=== PATIENT | male | born 1945 | race Two or more races ===

== ENCOUNTER 2022-09-07 20:56 | Inpatient (IN) | payer MEDICARE, OTHER ==
[~2022-09-07] VITALS: Ht 160 cm; Wt 61.2 kg
--- NOTE | 2022-09-07 20:31 | NUR ---
Patient arrived in the floor via gurney from [facility], accompanied by 2 EMT's. Awake, AOx 3, in no apparent distress. Denies any pain/discomforts at this time. Transferred from gurney to bed with 3 people assist. Able to move all extremities with slight weakness on left LE. Dressing on left hip dry and intact. F/C intact/patent draining well with clear yellow output. Routine admission care done. Plan of care initiated. VS taken and recorded.
[2022-09-07 20:35] VITALS: BP 150/71
[2022-09-07] MEDS ORDERED: ROSU40TA PO (22:50)
[2022-09-07] MEDS ORDERED: BIMA2.5D5 EACHEYE (22:50)
[2022-09-07] MEDS ORDERED: OLME1TAB22 PO (22:50)
[2022-09-07] MEDS ORDERED: LUBI24CA5 PO (22:50)
[2022-09-07] MEDS ORDERED: ESOM40CA PO (22:50)
[2022-09-07] MEDS ORDERED: MIRT-94 PO (22:50)
[2022-09-07] MEDS ORDERED: LIPA1CAP15 PO (22:50)
[2022-09-07] MEDS ORDERED: ICOS1CAP PO (22:50)
[2022-09-07] MEDS ORDERED: SENN-18 PO (22:50)
[2022-09-07] MEDS ORDERED: METO-356 PO (22:50)
[2022-09-07] MEDS ORDERED: MIRA25TA PO (22:50)
[2022-09-07] MEDS ORDERED: NITR0.4T48 SL (22:50)
[2022-09-07] MEDS ORDERED: BACL10TA PO (22:50)
[2022-09-07] MEDS ORDERED: POTA10TA21 PO (22:50)
[2022-09-07] MEDS ORDERED: ONDA-104 PO (22:50)
[2022-09-07] MEDS ORDERED: HYDR-3972 PO (22:50)
[2022-09-07] MEDS ORDERED: ASPI-612 PO (22:50)
[2022-09-07] MEDS ORDERED: LINA145C PO (22:50)
[2022-09-07] MEDS ORDERED: EZET10TA32 PO (22:50)
[2022-09-07] MEDS ORDERED: NAPR-1009 PO (22:50)
[2022-09-07] MEDS ORDERED: FAMO40TA7 PO (22:50)
[2022-09-07] MEDS ORDERED: TIMO5SOL11 OP (22:50)
[2022-09-07] MEDS ORDERED: PREG100C PO (22:50)
[2022-09-07] MEDS ORDERED: CHOL100034 PO (22:50)
[2022-09-07] MEDS ORDERED: PARO-64 PO (22:50)
[2022-09-07] MEDS ORDERED: GABA-532 PO (22:50)
[2022-09-08 04:00] VITALS: BP 158/76
[2022-09-08 07:56] VITALS: BP 139/78
[2022-09-08] MEDS: REMEDY ESSENTIAL ZINC PASTE 113 GM TOP SCH ×2 (09:34→20:24)
[2022-09-08] MEDS ORDERED: ONDANSETRON HCL 4 MG TABLET PO PRN (11:00)
[2022-09-08] MEDS ORDERED: ASPIRIN 325 MG TABLET PO SCH (11:00)
[2022-09-08] MEDS ORDERED: SENNOSIDES 1 TABLET PO PRN (11:00)
[2022-09-08] MEDS ORDERED: NITROGLYCERIN 0.4 MG/TAB BOTTLE SL PRN (11:00)
[2022-09-08] MEDS: PAROXETINE HCL 20 MG TABLET PO SCH (11:50)
[2022-09-08] MEDS: ASPIRIN 325 MG TABLET PO SCH (11:52)
[2022-09-08] MEDS: LIPASE/PROTEASE/AMYLASE 4200 UNITS CAPSULE.DR PO SCH ×2 (12:34→17:23)
[2022-09-08] MEDS ORDERED: TIMO5DRO18 EACHEYE (12:41)
[2022-09-08] MEDS ORDERED: POTA5TAB2 PO (12:41)
[2022-09-08] MEDS: PREGABALIN 100 MG CAPSULE PO SCH ×2 (13:20→20:24)
[2022-09-08] MEDS: TIMOLOL MALEATE 0.5% OPHT DROP 5 ML BOTTLE EACHEYE SCH ×2 (15:00→20:23)
[2022-09-08] MEDS: METOPROLOL SUCCINATE XL 25 MG TAB.SR.24H PO SCH (15:00)
[2022-09-08 16:22] VITALS: BP 121/73
--- NOTE | 2022-09-08 18:28 | NUR ---
Patient was admitted to the hospital during NOC shift. Admitting orders finalized by Dr. Ann. Oriented patient to facility and surroundings. Safety precautions explained, encouraged to use call light for help every time needed with good understanding. LT hip surgical site with arnav in place, covered with clean DD in place, patient denies pain, on routine lyrica/other medication and administered as scheduled. Patient eating and drinking well, CxR done, results reviewed by Dr. Ann, no new orders. Per pharmacy they do not carry Linzess nor Merbetric, attempted to reach Yodit, (patient's family) to request home meds, but unable to get a hold of her , endorsed to incoming relieving nurse for proper follow up. All needs anticipated and met.
[2022-09-08] MEDS: LATANOPROST OPHT DROP 2.5 ML BOTTLE EACHEYE SCH (20:23)
[2022-09-08] MEDS: ATORVASTATIN 40 MG TABLET PO SCH (20:28)
[2022-09-08] MEDS: MIRTAZAPINE 15 MG TABLET PO SCH (20:28)
[2022-09-08] MEDS: EZETIMIBE 10 MG TABLET PO SCH (20:28)
[2022-09-08] MEDS: BACLOFEN 10 MG TABLET PO SCH (20:28)
[2022-09-08 21:11] VITALS: BP 125/62
[2022-09-09 05:34] VITALS: BP 145/76
[2022-09-09 06:54] LABS: HEMATOCRIT 30.6 % (36.7-47.1); MEAN CORPUSCULAR VOLUME 92.8 fL (73.0-96.2); PLATELET COUNT (AUTO) 111 K/uL (152-348)
[2022-09-09 07:50] VITALS: BP 138/76
[2022-09-09] MEDS ORDERED: Medication Not On Formulary EA (Olmesartan/Hydrochlorothiazide (Benicar Hct 40-25 Mg Tab PO SCH (09:00)
[2022-09-09] MEDS ORDERED: Mirabegron (Myrbetriq) 25 MG) PO SCH (09:00)
[2022-09-09] MEDS ORDERED: Linaclotide (Linzess) 145 MCG) PO SCH (09:00)
[2022-09-09] MEDS: LOSARTAN POTASSIUM 50 MG TABLET PO SCH (10:02)
[2022-09-09] MEDS: CHOLECALCIFEROL 1,000 UNIT TABLET PO SCH (10:02)
[2022-09-09] MEDS: PAROXETINE HCL 20 MG TABLET PO SCH (10:02)
[2022-09-09] MEDS: HYDROCHLOROTHIAZIDE 25 MG TABLET PO SCH (10:02)
[2022-09-09] MEDS: ASPIRIN 325 MG TABLET PO SCH (10:02)
[2022-09-09] MEDS: PREGABALIN 100 MG CAPSULE PO SCH ×2 (10:03→16:53)
[2022-09-09] MEDS: REMEDY ESSENTIAL ZINC PASTE 113 GM TOP SCH ×2 (10:03→20:48)
[2022-09-09] MEDS: METOPROLOL SUCCINATE XL 25 MG TAB.SR.24H PO SCH (10:03)
[2022-09-09] MEDS: LIPASE/PROTEASE/AMYLASE 4200 UNITS CAPSULE.DR PO SCH ×3 (10:07→16:53)
[2022-09-09] MEDS: TIMOLOL MALEATE 0.5% OPHT DROP 5 ML BOTTLE EACHEYE SCH ×2 (10:24→16:54)
--- NOTE | 2022-09-09 13:23 | NUR ---
INTERDISCIPLINARY TEAM CONFERENCE
[2022-09-09 16:08] VITALS: BP_SYST 105; BP_SYST 140; BP_DIAS 58; BP_DIAS 69
[2022-09-09 20:00] VITALS: BP 107/60
[2022-09-09] MEDS: EZETIMIBE 10 MG TABLET PO SCH (20:47)
[2022-09-09] MEDS: LATANOPROST OPHT DROP 2.5 ML BOTTLE EACHEYE SCH (20:47)
[2022-09-09] MEDS: MIRTAZAPINE 15 MG TABLET PO SCH (20:47)
[2022-09-09] MEDS: BACLOFEN 10 MG TABLET PO SCH (20:47)
[2022-09-09] MEDS: ATORVASTATIN 40 MG TABLET PO SCH (20:47)
--- NOTE | 2022-09-10 06:41 | NUR ---
Had 2x BM soft yellow colored. Good julieth care/skin care rendered.
[2022-09-10 07:30] LABS: HEMATOCRIT 32.3 % (36.7-47.1); MEAN CORPUSCULAR HEMOGLOBIN 30.9 uug (23.8-33.4); MEAN CORPUSCULAR VOLUME 93.1 fL (73.0-96.2); PLATELET COUNT (AUTO) 158 K/uL (152-348)
[2022-09-10 07:59] LABS: THYROID STIMULATING HORMONE 1.214 mIU/mL (0.358-3.740)
[2022-09-10 08:04] VITALS: BP 120/70
[2022-09-10] MEDS: PREGABALIN 100 MG CAPSULE PO SCH ×2 (08:16→16:56)
[2022-09-10] MEDS: CHOLECALCIFEROL 1,000 UNIT TABLET PO SCH (08:16)
[2022-09-10] MEDS: ASPIRIN 325 MG TABLET PO SCH (08:16)
[2022-09-10] MEDS: PAROXETINE HCL 20 MG TABLET PO SCH (08:16)
[2022-09-10] MEDS: METOPROLOL SUCCINATE XL 25 MG TAB.SR.24H PO SCH (08:17)
[2022-09-10] MEDS: LOSARTAN POTASSIUM 50 MG TABLET PO SCH (08:17)
[2022-09-10] MEDS: HYDROCHLOROTHIAZIDE 25 MG TABLET PO SCH (08:17)
[2022-09-10] MEDS: LIPASE/PROTEASE/AMYLASE 4200 UNITS CAPSULE.DR PO SCH ×3 (08:18→17:02)
[2022-09-10] MEDS: TIMOLOL MALEATE 0.5% OPHT DROP 5 ML BOTTLE EACHEYE SCH ×2 (08:18→16:56)
[2022-09-10] MEDS: REMEDY ESSENTIAL ZINC PASTE 113 GM TOP SCH ×2 (08:19→20:44)
[2022-09-10 08:29] LABS: BILIRUBIN,TOTAL 0.8 mg/dL (0.2-1.0); CREATININE 0.6 mg/dL (0.6-1.3); MAGNESIUM 1.3 mg/dL (1.8-2.4); PHOSPHOROUS 3.7 mg/dL (2.5-4.9); TOTAL PROTEIN, SERUM 5.1 g/dL (6.4-8.2)
[2022-09-10 08:53] LABS: POTASSIUM 2.6 mmol/L (3.5-5.1)
[2022-09-10] MEDS ORDERED: POTASSIUM CHLORIDE 20 MEQ TAB.PRT.SR PO ONE (09:15)
[2022-09-10] MEDS ORDERED: MAGNESIUM OXIDE 400 MG TABLET PO ONE (09:15)
[2022-09-10] MEDS: PROTEIN SUPPLEMENT (PROSTAT) 30 ML LIQUID PO SCH (09:32)
--- NOTE | 2022-09-10 10:57 | NUR ---
INDIVIDUALIZED PLAN OF CARE
[2022-09-10 11:04] VITALS: BP 98/62
[2022-09-10] MEDS: ENSURE ENLIVE (VAN) 240 ML LIQUID PO SCH ×2 (13:30→16:56)
[2022-09-10 15:57] VITALS: BP 95/56
[2022-09-10 20:00] VITALS: BP 114/66
[2022-09-10] MEDS: LATANOPROST OPHT DROP 2.5 ML BOTTLE EACHEYE SCH (20:42)
[2022-09-10] MEDS: EZETIMIBE 10 MG TABLET PO SCH (20:42)
[2022-09-10] MEDS: MIRTAZAPINE 15 MG TABLET PO SCH (20:43)
[2022-09-10] MEDS: BACLOFEN 10 MG TABLET PO SCH (20:43)
[2022-09-10] MEDS: ATORVASTATIN 40 MG TABLET PO SCH (20:43)
[2022-09-11 04:00] VITALS: BP 106/65
[2022-09-11 07:46] VITALS: BP 137/68
[2022-09-11] MEDS: METOPROLOL SUCCINATE XL 25 MG TAB.SR.24H PO SCH (08:32)
[2022-09-11] MEDS: CHOLECALCIFEROL 1,000 UNIT TABLET PO SCH (08:32)
[2022-09-11] MEDS: ASPIRIN 325 MG TABLET PO SCH (08:32)
[2022-09-11] MEDS: PAROXETINE HCL 20 MG TABLET PO SCH (08:33)
[2022-09-11] MEDS: PREGABALIN 100 MG CAPSULE PO SCH ×2 (08:33→16:36)
[2022-09-11] MEDS: LOSARTAN POTASSIUM 50 MG TABLET PO SCH (08:33)
[2022-09-11] MEDS: HYDROCHLOROTHIAZIDE 25 MG TABLET PO SCH (08:33)
[2022-09-11] MEDS: LIPASE/PROTEASE/AMYLASE 4200 UNITS CAPSULE.DR PO SCH ×3 (08:33→16:37)
[2022-09-11] MEDS: PROTEIN SUPPLEMENT (PROSTAT) 30 ML LIQUID PO SCH (08:34)
[2022-09-11] MEDS: TIMOLOL MALEATE 0.5% OPHT DROP 5 ML BOTTLE EACHEYE SCH ×2 (08:35→16:37)
[2022-09-11] MEDS: ENSURE ENLIVE (VAN) 240 ML LIQUID PO SCH ×3 (09:05→17:13)
[2022-09-11] MEDS: REMEDY ESSENTIAL ZINC PASTE 113 GM TOP SCH ×2 (09:06→21:01)
--- NOTE | 2022-09-11 09:35 | NUR ---
0730-Rec'd patient verbalizes simple needs, denies pain, on R/A and saturating well, no respiratory distress noted. Bedside table & needed items at reach. Encouraged to use call light every time help is needed with good understanding; safety precaution reminders provided. All safety measures in place. 0900-Scheduled/due medication administered with no ASE noted. Oral fluids taken well.
[2022-09-11 16:33] VITALS: BP 106/60
--- NOTE | 2022-09-11 18:03 | NUR ---
1130-Patient was visited by (Cristy), followed up with Cristy if she can provide home meds as follows: Lizess and Merbetric, per Cristy she will bring Linzess tomorrow, but she does not know if she has Merbetric. Pharmacy was informed ([facility]). Endorsed it properly to incoming relieving RN for proper follow up. No unusual occurrences during shift, patient within usual baseline/stable. Had a shower today by rehab personnel; dressing to left hip surgical site changed. Patient tolerated procedure well,l denied any pain. All needs anticipated and met.
[2022-09-11 20:00] VITALS: BP 90/50
[2022-09-11] MEDS: ATORVASTATIN 40 MG TABLET PO SCH (21:00)
[2022-09-11] MEDS: BACLOFEN 10 MG TABLET PO SCH (21:00)
[2022-09-11] MEDS: LATANOPROST OPHT DROP 2.5 ML BOTTLE EACHEYE SCH (21:01)
[2022-09-11] MEDS: EZETIMIBE 10 MG TABLET PO SCH (21:01)
[2022-09-11] MEDS: MIRTAZAPINE 15 MG TABLET PO SCH (21:01)
[2022-09-11] MEDS: HYDROCODONE/APAP 5-325MG TABLET PO PRN (21:50)
[2022-09-12 04:00] VITALS: BP 110/62
--- NOTE | 2022-09-12 04:19 | NUR ---
Admitted for S/P left hip arthroplasty by Dr Ryder. Left hip dressing intact with arnav intact. All needs attended. VSS No acute distress noted. Will monitor patient. Denies any pain nor any discomfort. Hernández catheter intact draining yellow urine. v
[2022-09-12 07:36] VITALS: BP 98/52
[2022-09-12] MEDS: METOPROLOL SUCCINATE XL 25 MG TAB.SR.24H PO SCH (09:00)
[2022-09-12] MEDS: LOSARTAN POTASSIUM 50 MG TABLET PO SCH (09:00)
[2022-09-12] MEDS: LIPASE/PROTEASE/AMYLASE 4200 UNITS CAPSULE.DR PO SCH ×3 (10:17→16:49)
[2022-09-12] MEDS: ASPIRIN 325 MG TABLET PO SCH (10:17)
[2022-09-12] MEDS: CHOLECALCIFEROL 1,000 UNIT TABLET PO SCH (10:17)
[2022-09-12] MEDS: PROTEIN SUPPLEMENT (PROSTAT) 30 ML LIQUID PO SCH (10:18)
[2022-09-12] MEDS: TIMOLOL MALEATE 0.5% OPHT DROP 5 ML BOTTLE EACHEYE SCH ×2 (10:18→16:44)
[2022-09-12] MEDS: REMEDY ESSENTIAL ZINC PASTE 113 GM TOP SCH ×2 (10:19→20:41)
[2022-09-12] MEDS: HYDROCHLOROTHIAZIDE 25 MG TABLET PO SCH (10:20)
[2022-09-12] MEDS: PREGABALIN 100 MG CAPSULE PO SCH ×2 (10:20→16:45)
[2022-09-12] MEDS: ENSURE ENLIVE (VAN) 240 ML LIQUID PO SCH ×3 (10:21→16:45)
[2022-09-12] MEDS: PAROXETINE HCL 20 MG TABLET PO SCH (10:21)
[2022-09-12] MEDS ORDERED: IV NORMAL SALINE 250 ML IV ONE (16:30)
[2022-09-12] MEDS: PIPERACILLIN SODIUM/TAZOBACTAM 3.375 G in IV DEXTROSE 5% 50 ML IV SCH ×2 (18:02→18:10)
[2022-09-12 18:29] LABS: HEMATOCRIT 33.8 % (36.7-47.1); MEAN CORPUSCULAR HEMOGLOBIN 30.8 uug (23.8-33.4); MEAN CORPUSCULAR VOLUME 92.9 fL (73.0-96.2); PLATELET COUNT (AUTO) 276 K/uL (152-348)
[2022-09-12 18:42] LABS: CREATININE 0.9 mg/dL (0.6-1.3)
[2022-09-12 18:46] LABS: POTASSIUM 2.6 mmol/L (3.5-5.1)
[2022-09-12 18:48] LABS: BILIRUBIN,TOTAL 0.9 mg/dL (0.2-1.0); TOTAL PROTEIN, SERUM 5.5 g/dL (6.4-8.2)
[2022-09-12] MEDS ORDERED: POTASSIUM CHLORIDE 20 MEQ TAB.PRT.SR PO ONE ×2 (19:00→19:30)
[2022-09-12 19:40] VITALS: BP 94/54
[2022-09-12] MEDS ORDERED: IV 0.9% SODIUM CHLORID+ 20 KCL 1,000 ML ONE (19:49)
[2022-09-12] MEDS ORDERED: IV 0.9% SODIUM CHLORID+ 20 KCL 1,000 ML IV PRN (20:00)
[2022-09-12] MEDS: VANCOMYCIN IV 1,000 MG in IV DEXTROSE 5% 250 ML IV SCH (20:01)
[2022-09-12] MEDS: LATANOPROST OPHT DROP 2.5 ML BOTTLE EACHEYE SCH (20:08)
[2022-09-12] MEDS: MIRTAZAPINE 15 MG TABLET PO SCH (20:37)
[2022-09-12] MEDS: BACLOFEN 10 MG TABLET PO SCH (20:37)
[2022-09-12] MEDS: VALACYCLOVIR HCL 500 MG TABLET PO SCH (20:38)
[2022-09-13] MEDS: PIPERACILLIN SODIUM/TAZOBACTAM 3.375 G in IV DEXTROSE 5% 50 ML IV SCH ×3 (01:44→17:44)
[2022-09-13 04:30] VITALS: BP 96/52
--- NOTE | 2022-09-13 05:00 | NUR ---
K 2.6 MD aware Took a total of Kdur 60 meq tabs per MD's order. Tolerated well. No ill effects noted. IV ABT given as ordered. IVF's infusing well @ 70 cc/hr via left arm heplock. Needs attended. Repositioned for comfort. Turned to sides. Fall precautions maintained. Will monitor patient. Siderails up for safety. Hernández catheter intact draining yellow urine. I & O monitor. No complaints presented during the shift.
[2022-09-13 07:43] VITALS: BP 106/58
[2022-09-13 08:03] LABS: HEMATOCRIT 26.5 % (36.7-47.1); MEAN CORPUSCULAR HEMOGLOBIN 31.3 uug (23.8-33.4); PLATELET COUNT (AUTO) 259 K/uL (152-348)
[2022-09-13] MEDS: HYDROCHLOROTHIAZIDE 25 MG TABLET PO SCH (09:00)
[2022-09-13] MEDS: METOPROLOL SUCCINATE XL 25 MG TAB.SR.24H PO SCH (09:00)
[2022-09-13] MEDS: POTASSIUM CHLORIDE 10 MEQ TAB.PRT.SR PO SCH ×2 (09:00→10:19)
[2022-09-13 09:03] LABS: CREATININE 0.7 mg/dL (0.6-1.3); POTASSIUM 5.8 mmol/L (3.5-5.1)
[2022-09-13 09:37] LABS: MAGNESIUM 1.2 mg/dL (1.8-2.4)
[2022-09-13] MEDS: PREGABALIN 100 MG CAPSULE PO SCH ×2 (10:19→17:40)
[2022-09-13] MEDS: CHOLECALCIFEROL 1,000 UNIT TABLET PO SCH (10:19)
[2022-09-13] MEDS: PAROXETINE HCL 20 MG TABLET PO SCH (10:19)
[2022-09-13] MEDS: ASPIRIN 325 MG TABLET PO SCH (10:20)
[2022-09-13] MEDS: ENSURE ENLIVE (VAN) 240 ML LIQUID PO SCH ×3 (10:20→17:40)
[2022-09-13] MEDS: LIPASE/PROTEASE/AMYLASE 4200 UNITS CAPSULE.DR PO SCH ×3 (10:21→17:41)
[2022-09-13] MEDS: TIMOLOL MALEATE 0.5% OPHT DROP 5 ML BOTTLE EACHEYE SCH ×2 (10:21→17:40)
[2022-09-13] MEDS: PROTEIN SUPPLEMENT (PROSTAT) 30 ML LIQUID PO SCH ×3 (10:21→17:41)
[2022-09-13] MEDS: VALACYCLOVIR HCL 500 MG TABLET PO SCH ×2 (10:22→20:43)
[2022-09-13] MEDS: LINZESS 145MG - PATIENT MAY USE OWN MED- MD OK PO SCH (10:22)
[2022-09-13] MEDS: REMEDY ESSENTIAL ZINC PASTE 113 GM TOP SCH ×2 (10:24→20:44)
[2022-09-13] MEDS ORDERED: FUROSEMIDE 20 MG/2 ML VIAL IV ONE (10:45)
[2022-09-13] MEDS: MAGNESIUM SULFATE/D5W 100 ML IV SCH ×2 (11:09→12:39)
[2022-09-13 11:23] LABS: IRON, SERUM 17 ug/dL (50-175)
--- NOTE | 2022-09-13 12:40 | NUR ---
KUB done as ordered. bladder seen with <700ml urine. f/c inserted 1300 ml drained. pt stated he did not fell full in his bladder. but on palpitation he stated it felt full. hailee well. clear teto
[2022-09-13] MEDS: VANCOMYCIN IV 1,000 MG in IV DEXTROSE 5% 250 ML IV SCH (14:43)
[2022-09-13 16:26] VITALS: BP 83/56
--- NOTE | 2022-09-13 19:35 | NUR ---
Right hand swollen, IV infiltrated, removed and start a new IV site on RFA Q# 20 x 1 attempt with good blood return. Patient tolerated procedure well. IVF resumed as ordered.
[2022-09-13 19:58] VITALS: BP 91/58
[2022-09-13] MEDS: BACLOFEN 10 MG TABLET PO SCH (20:43)
[2022-09-13] MEDS: MIRTAZAPINE 15 MG TABLET PO SCH (20:43)
[2022-09-13] MEDS: LATANOPROST OPHT DROP 2.5 ML BOTTLE EACHEYE SCH (20:43)
[2022-09-14] MEDS: PIPERACILLIN SODIUM/TAZOBACTAM 3.375 G in IV DEXTROSE 5% 50 ML IV SCH ×3 (01:20→18:32)
[2022-09-14 04:30] VITALS: BP 100/59
[2022-09-14 07:38] VITALS: BP 118/69
[2022-09-14 08:51] LABS: CREATININE 0.7 mg/dL (0.6-1.3); POTASSIUM 2.9 mmol/L (3.5-5.1); VANCOMYCIN,TROUGH 14.8 ug/mL (12.0-20.0)
[2022-09-14] MEDS: PAROXETINE HCL 20 MG TABLET PO SCH (08:54)
[2022-09-14] MEDS: POTASSIUM CHLORIDE 10 MEQ TAB.PRT.SR PO SCH (08:55)
[2022-09-14] MEDS: LINZESS 145MG - PATIENT MAY USE OWN MED- MD OK PO SCH (08:55)
[2022-09-14] MEDS: ASPIRIN 325 MG TABLET PO SCH (08:55)
[2022-09-14] MEDS: CHOLECALCIFEROL 1,000 UNIT TABLET PO SCH (08:55)
[2022-09-14] MEDS: HYDROCHLOROTHIAZIDE 25 MG TABLET PO SCH (08:55)
[2022-09-14] MEDS: PREGABALIN 100 MG CAPSULE PO SCH ×2 (08:55→16:22)
[2022-09-14] MEDS: METOPROLOL SUCCINATE XL 25 MG TAB.SR.24H PO SCH (09:00)
[2022-09-14] MEDS: PROTEIN SUPPLEMENT (PROSTAT) 30 ML LIQUID PO SCH ×3 (09:15→16:23)
[2022-09-14] MEDS: ENSURE ENLIVE (VAN) 240 ML LIQUID PO SCH ×3 (09:15→16:23)
[2022-09-14] MEDS: TIMOLOL MALEATE 0.5% OPHT DROP 5 ML BOTTLE EACHEYE SCH ×2 (09:15→16:23)
[2022-09-14] MEDS: REMEDY ESSENTIAL ZINC PASTE 113 GM TOP SCH ×2 (09:16→20:31)
[2022-09-14] MEDS: VALACYCLOVIR HCL 500 MG TABLET PO SCH ×2 (09:58→20:30)
[2022-09-14] MEDS: VANCOMYCIN IV 1,000 MG in IV DEXTROSE 5% 250 ML IV SCH (09:58)
[2022-09-14] MEDS: LIPASE/PROTEASE/AMYLASE 4200 UNITS CAPSULE.DR PO SCH ×3 (09:58→16:23)
[2022-09-14] MEDS ORDERED: POTASSIUM CHLORIDE 20 MEQ TAB.PRT.SR PO ONE (11:00)
[2022-09-14] MEDS ORDERED: SOD FERRIC GLUC COMPLX/SUCROSE 125 MG in IV NORMAL SALINE 100 ML IV ONE (14:00)
[2022-09-14 15:17] VITALS: BP 104/63
[2022-09-14 19:51] VITALS: BP 110/60
[2022-09-14] MEDS: MIRTAZAPINE 15 MG TABLET PO SCH (20:30)
[2022-09-14] MEDS: BACLOFEN 10 MG TABLET PO SCH (20:30)
[2022-09-14] MEDS: LATANOPROST OPHT DROP 2.5 ML BOTTLE EACHEYE SCH (20:30)
[2022-09-15] MEDS: IV NS 1000 ML 1,000 ML IV PRN (00:42)
[2022-09-15] MEDS: PIPERACILLIN SODIUM/TAZOBACTAM 3.375 G in IV DEXTROSE 5% 50 ML IV SCH ×3 (01:00→18:26)
[2022-09-15] MEDS: VANCOMYCIN IV 1,000 MG in IV DEXTROSE 5% 250 ML IV SCH (01:01)
[2022-09-15 05:13] VITALS: BP 116/69
--- NOTE | 2022-09-15 05:51 | NUR ---
no events noted overnight, IV intact to right wrist, no signs and symptoms of IV infiltration noted at this time. Addendum: 09/15/22 at 0557 by VESTA BARON RN, RN incision site to left hip is intact, clean and dry, arnav are intact. well approximated, no sign and symptoms of infection noted at this time.
--- NOTE | 2022-09-15 07:15 | NUR ---
Received report from Darion RN, pt asleep in bed, no s/s of distress noted. IV sight no s/s of infection or infiltration. Bed low, call light within reach, bed alarm on.
[2022-09-15 07:40] LABS: HEMATOCRIT 29.9 % (36.7-47.1); MEAN CORPUSCULAR HEMOGLOBIN 31.4 uug (23.8-33.4); MEAN CORPUSCULAR VOLUME 93.3 fL (73.0-96.2); PLATELET COUNT (AUTO) 413 K/uL (152-348)
[2022-09-15] MEDS: PROTEIN SUPPLEMENT (PROSTAT) 30 ML LIQUID PO SCH ×3 (08:00→15:00)
[2022-09-15 08:06] VITALS: BP 119/65
[2022-09-15 08:26] LABS: BILIRUBIN,TOTAL 0.7 mg/dL (0.2-1.0); CREATININE 0.8 mg/dL (0.6-1.3); MAGNESIUM 1.6 mg/dL (1.8-2.4); PHOSPHOROUS 3.2 mg/dL (2.5-4.9); POTASSIUM 3.8 mmol/L (3.5-5.1); TOTAL PROTEIN, SERUM 5.8 g/dL (6.4-8.2)
[2022-09-15] MEDS: ENSURE ENLIVE (VAN) 240 ML LIQUID PO SCH ×3 (08:35→17:34)
[2022-09-15] MEDS: REMEDY ESSENTIAL ZINC PASTE 113 GM TOP SCH ×2 (08:40→21:18)
[2022-09-15] MEDS: LIPASE/PROTEASE/AMYLASE 4200 UNITS CAPSULE.DR PO SCH ×3 (08:56→16:44)
[2022-09-15] MEDS: POTASSIUM CHLORIDE 10 MEQ TAB.PRT.SR PO SCH (08:58)
[2022-09-15] MEDS: VALACYCLOVIR HCL 500 MG TABLET PO SCH ×2 (08:58→21:18)
[2022-09-15] MEDS: CHOLECALCIFEROL 1,000 UNIT TABLET PO SCH (08:59)
[2022-09-15] MEDS: PREGABALIN 100 MG CAPSULE PO SCH ×2 (09:00→16:44)
[2022-09-15] MEDS: PAROXETINE HCL 20 MG TABLET PO SCH (09:01)
[2022-09-15] MEDS: METOPROLOL SUCCINATE XL 25 MG TAB.SR.24H PO SCH (09:01)
[2022-09-15] MEDS: HYDROCHLOROTHIAZIDE 25 MG TABLET PO SCH (09:02)
[2022-09-15] MEDS: TIMOLOL MALEATE 0.5% OPHT DROP 5 ML BOTTLE EACHEYE SCH ×2 (09:03→16:44)
[2022-09-15] MEDS: ASPIRIN 325 MG TABLET PO SCH (09:03)
[2022-09-15] MEDS: LINZESS 145MG - PATIENT MAY USE OWN MED- MD OK PO SCH (09:04)
--- NOTE | 2022-09-15 10:40 | NUR ---
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 Spoke to Aidan in the Med room at 0930, he said he would follow up with pharmacy. I called Kika in the pharmacy at 1000 to f/u, she said she would look into it. At 1013 Aidan told me to please get it from dietary. Spoke with Kady in dietary at 1038 she is checking the orders and will get back to me jocelyne.
[2022-09-15] MEDS: MAGNESIUM SULFATE/D5W 100 ML IV SCH ×2 (11:33→14:27)
--- NOTE | 2022-09-15 11:49 | NUR ---
Pt Left Hip incision sight with arnav, clean and intact with no s/s of infection noted.
[2022-09-15 12:00] VITALS: BP 119/65
--- NOTE | 2022-09-15 15:21 | NUR ---
PROSTAT given at 1338 today per old order. "Held" on new Daily order at 1500 because it was already.
[2022-09-15 16:00] VITALS: BP 118/60
--- NOTE | 2022-09-15 16:30 | NUR ---
Pt was c/o pain in IV hand. Pt now states that there is no pain there.
[2022-09-15 20:00] VITALS: BP_SYST 117; BP_SYST 91; BP_DIAS 56; BP_DIAS 67
[2022-09-15] MEDS: MIRTAZAPINE 15 MG TABLET PO SCH (21:17)
[2022-09-15] MEDS: LATANOPROST OPHT DROP 2.5 ML BOTTLE EACHEYE SCH (21:17)
[2022-09-15] MEDS: BACLOFEN 10 MG TABLET PO SCH (21:17)
[2022-09-16] VITALS: BP 114/56
[2022-09-16] MEDS: PIPERACILLIN SODIUM/TAZOBACTAM 3.375 G in IV DEXTROSE 5% 50 ML IV SCH ×2 (02:27→10:21)
[2022-09-16 04:00] VITALS: BP 112/73
--- NOTE | 2022-09-16 07:33 | NUR ---
Received report from JANI Leary. Pt stable, asleep in bed, arousable. Oriented pt to date and time. No s/s of distress noted. Bed in lowest position, bed alarm on, call light within reach.
[2022-09-16 08:12] VITALS: BP 112/65
[2022-09-16] MEDS: LIPASE/PROTEASE/AMYLASE 4200 UNITS CAPSULE.DR PO SCH ×3 (08:16→17:39)
[2022-09-16] MEDS: ASPIRIN 325 MG TABLET PO SCH (08:16)
[2022-09-16] MEDS: POTASSIUM CHLORIDE 10 MEQ TAB.PRT.SR PO SCH (08:16)
[2022-09-16] MEDS: TIMOLOL MALEATE 0.5% OPHT DROP 5 ML BOTTLE EACHEYE SCH ×2 (08:16→17:39)
[2022-09-16] MEDS: PREGABALIN 100 MG CAPSULE PO SCH ×2 (08:16→17:39)
[2022-09-16] MEDS: CHOLECALCIFEROL 1,000 UNIT TABLET PO SCH (08:16)
[2022-09-16] MEDS: VALACYCLOVIR HCL 500 MG TABLET PO SCH ×2 (08:16→20:20)
[2022-09-16] MEDS: HYDROCHLOROTHIAZIDE 25 MG TABLET PO SCH (08:17)
[2022-09-16] MEDS: PAROXETINE HCL 20 MG TABLET PO SCH (08:17)
[2022-09-16] MEDS: METOPROLOL SUCCINATE XL 25 MG TAB.SR.24H PO SCH (08:18)
[2022-09-16] MEDS: LINZESS 145MG - PATIENT MAY USE OWN MED- MD OK PO SCH (08:18)
[2022-09-16] MEDS: ENSURE ENLIVE (VAN) 240 ML LIQUID PO SCH ×3 (08:19→17:39)
[2022-09-16] MEDS: REMEDY ESSENTIAL ZINC PASTE 113 GM TOP SCH ×2 (08:20→20:20)
[2022-09-16] MEDS: PROTEIN SUPPLEMENT (PROSTAT) 30 ML LIQUID PO SCH (09:26)
--- NOTE | 2022-09-16 10:21 | NUR ---
INTERDISCIPLINARY TEAM CONFERENCE
[2022-09-16 16:00] VITALS: BP 95/56
[2022-09-16] MEDS ORDERED: PIPERACILLIN SODIUM/TAZOBACTAM 3.375 G in IV DEXTROSE 5% 100 ML IV SCH (18:00)
--- NOTE | 2022-09-16 18:00 | NUR ---
Blood in browning noted. Pt states he has many kidney stones. Will notify MD and endorse to slot shift supervisor.
--- NOTE | 2022-09-16 19:23 | NUR ---
Endorsed pt to casino shift manager RN, pt stable, no s/s of distress noted.
[2022-09-16 20:02] VITALS: BP 111/55
[2022-09-16] MEDS: MIRTAZAPINE 15 MG TABLET PO SCH (20:20)
[2022-09-16] MEDS: LATANOPROST OPHT DROP 2.5 ML BOTTLE EACHEYE SCH (20:20)
[2022-09-16] MEDS: BACLOFEN 10 MG TABLET PO SCH (20:20)
--- NOTE | 2022-09-17 04:12 | NUR ---
AAOx3-4 Admitted for a left hip replacement. Left hip dressing clean dry and intact. Denies any pain nor any discomfort. Fall precautions maintained. IVF's infusing well via left wrist heplock. Hernández catheter intact draining yellow urine. Will monitor patient. Kept comfortable.
[2022-09-17 04:55] VITALS: BP 114/68
[2022-09-17 08:00] VITALS: BP 147/69
[2022-09-17] MEDS: REMEDY ESSENTIAL ZINC PASTE 113 GM TOP SCH ×2 (08:41→20:47)
[2022-09-17] MEDS: PAROXETINE HCL 20 MG TABLET PO SCH (09:00)
[2022-09-17] MEDS: METOPROLOL SUCCINATE XL 25 MG TAB.SR.24H PO SCH ×2 (09:00→09:06)
[2022-09-17] MEDS: LINZESS 145MG - PATIENT MAY USE OWN MED- MD OK PO SCH (09:00)
[2022-09-17] MEDS: PREGABALIN 100 MG CAPSULE PO SCH ×2 (09:00→17:28)
[2022-09-17] MEDS: LIPASE/PROTEASE/AMYLASE 4200 UNITS CAPSULE.DR PO SCH ×3 (09:00→17:28)
[2022-09-17] MEDS: ASPIRIN 325 MG TABLET PO SCH (09:00)
[2022-09-17] MEDS: CHOLECALCIFEROL 1,000 UNIT TABLET PO SCH (09:00)
[2022-09-17] MEDS: POTASSIUM CHLORIDE 10 MEQ TAB.PRT.SR PO SCH (09:00)
[2022-09-17] MEDS: HYDROCHLOROTHIAZIDE 25 MG TABLET PO SCH (09:05)
[2022-09-17] MEDS: ENSURE ENLIVE (VAN) 240 ML LIQUID PO SCH ×3 (09:07→17:20)
[2022-09-17] MEDS: PROTEIN SUPPLEMENT (PROSTAT) 30 ML LIQUID PO SCH (09:07)
[2022-09-17] MEDS: TIMOLOL MALEATE 0.5% OPHT DROP 5 ML BOTTLE EACHEYE SCH ×2 (09:09→17:29)
[2022-09-17] MEDS: VALACYCLOVIR HCL 500 MG TABLET PO SCH ×2 (09:09→20:46)
[2022-09-17] MEDS: IV NS 1000 ML 1,000 ML IV PRN (11:40)
[2022-09-17 16:00] VITALS: BP 128/64
[2022-09-17 20:00] VITALS: BP 107/57
[2022-09-17] MEDS: MIRTAZAPINE 15 MG TABLET PO SCH (20:46)
[2022-09-17] MEDS: BACLOFEN 10 MG TABLET PO SCH (20:46)
[2022-09-17] MEDS: LATANOPROST OPHT DROP 2.5 ML BOTTLE EACHEYE SCH (20:47)
--- NOTE | 2022-09-18 04:41 | NUR ---
Quiet night. VSS Needs attended. Fall precautions maintained. Siderails up for safety. IVF's infusing well. Hernández catheter intact draining yellow urine. I & O monitor. No acute distress noted. Tolerated po meds well. Denies any pain nor any discomfort. Repositioned for comfort.
[2022-09-18 05:10] VITALS: BP 110/68
[2022-09-18] MEDS: METOPROLOL SUCCINATE XL 25 MG TAB.SR.24H PO SCH (09:00)
[2022-09-18 09:06] VITALS: BP 154/77
[2022-09-18] MEDS: POTASSIUM CHLORIDE 10 MEQ TAB.PRT.SR PO SCH (09:35)
[2022-09-18] MEDS: PREGABALIN 100 MG CAPSULE PO SCH ×2 (09:35→16:09)
[2022-09-18] MEDS: ASPIRIN 325 MG TABLET PO SCH (09:36)
[2022-09-18] MEDS: CHOLECALCIFEROL 1,000 UNIT TABLET PO SCH (09:36)
[2022-09-18] MEDS: PAROXETINE HCL 20 MG TABLET PO SCH (09:36)
[2022-09-18] MEDS: HYDROCHLOROTHIAZIDE 25 MG TABLET PO SCH (09:36)
[2022-09-18] MEDS: TIMOLOL MALEATE 0.5% OPHT DROP 5 ML BOTTLE EACHEYE SCH ×2 (09:37→16:09)
[2022-09-18] MEDS: LIPASE/PROTEASE/AMYLASE 4200 UNITS CAPSULE.DR PO SCH ×3 (09:37→16:09)
[2022-09-18] MEDS: VALACYCLOVIR HCL 500 MG TABLET PO SCH ×2 (09:38→20:37)
[2022-09-18] MEDS: REMEDY ESSENTIAL ZINC PASTE 113 GM TOP SCH ×2 (09:39→20:50)
[2022-09-18] MEDS: ENSURE ENLIVE (VAN) 240 ML LIQUID PO SCH ×3 (09:39→16:09)
[2022-09-18] MEDS: PROTEIN SUPPLEMENT (PROSTAT) 30 ML LIQUID PO SCH (09:39)
[2022-09-18] MEDS: LINZESS 145MG - PATIENT MAY USE OWN MED- MD OK PO SCH (09:39)
[2022-09-18] MEDS: IV NS 1000 ML 1,000 ML IV PRN (09:46)
[2022-09-18 16:32] VITALS: BP 129/77
--- NOTE | 2022-09-18 19:31 | NUR ---
RECEIVED REPORT FROM SUSIE ACHARYA SHIFT RN. PATIENT IS ALERT & ORIENTED X4 AND ABLE TO SPEAK WOLOF. VITAL SIGNS STABLE. PATIENT TOLERATES PO & IV MEDICATIONS AND DIET WELL. PATIENT'S SCHMIDT CATHETER PATENT & DRAINING AND 1 BOWEL MOVEMENT. PATIENT PARTICIPATES IN PHYSICAL AND OCCUPATION THERAPY PER PLAN. PATIENT DENIES PAIN DURING SHIFT. NO ACUTE DISTRESS NOTED. FALL PRECAUTIONS OBSERVED; INCLUDING BUT NOT LIMITED TO BED IN LOWEST POSITION AND BED ALARM ON. ALL NEEDS MET AT THIS TIME. ENDORSED CARE TO JANI GODINEZ, FOR CONTINUATION OF CARE.
[2022-09-18 20:00] VITALS: BP 109/68
[2022-09-18] MEDS: BACLOFEN 10 MG TABLET PO SCH (20:36)
[2022-09-18] MEDS: MIRTAZAPINE 15 MG TABLET PO SCH (20:36)
[2022-09-18] MEDS: LATANOPROST OPHT DROP 2.5 ML BOTTLE EACHEYE SCH (20:37)
[2022-09-18 20:57] VITALS: BP 113/61
[2022-09-19] MEDS: IV NS 1000 ML 1,000 ML IV PRN (01:53)
[2022-09-19 04:10] VITALS: BP 138/69
[2022-09-19 08:01] VITALS: BP 116/73
[2022-09-19] MEDS: HYDROCHLOROTHIAZIDE 25 MG TABLET PO SCH (09:00)
[2022-09-19] MEDS: LIPASE/PROTEASE/AMYLASE 4200 UNITS CAPSULE.DR PO SCH ×3 (09:27→16:19)
[2022-09-19] MEDS: PAROXETINE HCL 20 MG TABLET PO SCH (09:28)
[2022-09-19] MEDS: PREGABALIN 100 MG CAPSULE PO SCH ×2 (09:28→16:19)
[2022-09-19] MEDS: CHOLECALCIFEROL 1,000 UNIT TABLET PO SCH (09:28)
[2022-09-19] MEDS: POTASSIUM CHLORIDE 10 MEQ TAB.PRT.SR PO SCH (09:28)
[2022-09-19] MEDS: METOPROLOL SUCCINATE XL 25 MG TAB.SR.24H PO SCH (09:28)
[2022-09-19] MEDS: ASPIRIN 325 MG TABLET PO SCH (09:28)
[2022-09-19] MEDS: LINZESS 145MG - PATIENT MAY USE OWN MED- MD OK PO SCH (09:29)
[2022-09-19] MEDS: VALACYCLOVIR HCL 500 MG TABLET PO SCH (09:29)
[2022-09-19] MEDS: TIMOLOL MALEATE 0.5% OPHT DROP 5 ML BOTTLE EACHEYE SCH ×2 (09:30→16:19)
[2022-09-19] MEDS: ENSURE ENLIVE (VAN) 240 ML LIQUID PO SCH ×3 (09:30→16:19)
[2022-09-19] MEDS: PROTEIN SUPPLEMENT (PROSTAT) 30 ML LIQUID PO SCH (09:30)
[2022-09-19] MEDS: REMEDY ESSENTIAL ZINC PASTE 113 GM TOP SCH ×2 (09:30→20:26)
[2022-09-19 15:54] VITALS: BP 100/56
--- NOTE | 2022-09-19 19:51 | NUR ---
RECEIVED REPORT FROM SUSIE HILL RN. PATIENT IS ALERT & ORIENTED X4 AND ABLE TO SPEAK ARMENIAN. VITAL SIGNS STABLE. PATIENT TOLERATES PO & IV MEDICATIONS AND DIET WELL. PATIENT PARTICIPATES WITH PHYSICAL THERAPY PER SCHEDULED. SCHMIDT CATHETER PATENT AND DRAINING. PATIENT HAD 3 EPISODES OF BOWEL MOVEMENT, NOTED TO BE DIARRHEAL. PATIENT DENIES PAIN. NO ACUTE DISTRESS NOTED. FALL PRECAUTIONS OBSERVED; INCLUDING BUT NOT LIMITED TO BED IN LOWEST POSITION AND BED ALARM ON. ALL NEEDS MET AT THIS TIME. ENDORSED CARE TO JANI HILL, FOR CONTINUATION OF CARE.
[2022-09-19 20:12] VITALS: BP 101/56
[2022-09-19] MEDS: MIRTAZAPINE 15 MG TABLET PO SCH (20:25)
[2022-09-19] MEDS: LATANOPROST OPHT DROP 2.5 ML BOTTLE EACHEYE SCH (20:25)
[2022-09-19] MEDS: BACLOFEN 10 MG TABLET PO SCH (20:25)
--- NOTE | 2022-09-19 21:00 | NUR ---
Patient in no acute distress. awake ,alert,and oriented x4. Saline lock intact in left arm. Respirations even and nonlabored. Abdomen soft with + bowel sounds. Hernández intact and patent, draining clear yellow urine. Will continue to monitor.
[2022-09-20 04:12] VITALS: BP 130/69
[2022-09-20] MEDS: POTASSIUM CHLORIDE 10 MEQ TAB.PRT.SR PO SCH (08:18)
[2022-09-20] MEDS: PREGABALIN 100 MG CAPSULE PO SCH ×2 (08:18→17:35)
[2022-09-20] MEDS: PAROXETINE HCL 20 MG TABLET PO SCH (08:19)
[2022-09-20] MEDS: CHOLECALCIFEROL 1,000 UNIT TABLET PO SCH (08:19)
[2022-09-20] MEDS: ASPIRIN 325 MG TABLET PO SCH (08:20)
[2022-09-20] MEDS: LIPASE/PROTEASE/AMYLASE 4200 UNITS CAPSULE.DR PO SCH ×3 (08:21→17:36)
[2022-09-20] MEDS: TIMOLOL MALEATE 0.5% OPHT DROP 5 ML BOTTLE EACHEYE SCH ×2 (08:22→17:36)
[2022-09-20] MEDS: HYDROCHLOROTHIAZIDE 25 MG TABLET PO SCH (08:23)
[2022-09-20] MEDS: METOPROLOL SUCCINATE XL 25 MG TAB.SR.24H PO SCH (08:23)
[2022-09-20 08:24] VITALS: BP 144/75
[2022-09-20 08:33] VITALS: BP 156/73
[2022-09-20] MEDS: ENSURE ENLIVE (VAN) 240 ML LIQUID PO SCH ×3 (09:12→17:35)
[2022-09-20] MEDS: PROTEIN SUPPLEMENT (PROSTAT) 30 ML LIQUID PO SCH (09:12)
[2022-09-20] MEDS: LINZESS 145MG - PATIENT MAY USE OWN MED- MD OK PO SCH (09:13)
[2022-09-20] MEDS: REMEDY ESSENTIAL ZINC PASTE 113 GM TOP SCH ×2 (09:13→20:45)
--- NOTE | 2022-09-20 10:08 | NUR ---
0730-REC'D PATIENT IN BED, AWAKE, ABLE TO COMMUNICATE NEEDS, DENIES PAIN, NO RESPIRATORY DISTRESS NOTED. CALL LIGHT AT REACH. 0900-SCHEDULED/DUE MEDICATION ADMINISTERED ORDERED WITH NO ASE NOTED, ORAL FLUIDS TAKEN WELL. CALL LIGHT AT REACH.
[2022-09-20 15:19] VITALS: BP 109/55
--- NOTE | 2022-09-20 19:34 | NUR ---
ASSIST WITH ADLS AND NEEDED, PATIENT IN USUAL BASELINE STABLE CONDITIONS. ACTIVELY ABLE TO PARTICIPATE IN HIS THERAPY W/O INTERRUPTIONS CAUSED BY PAIN OR DISCOMFORTS OF ANY. DRESSING TO LEFT HIP CHANGED, SURGICAL SITE INTACT, NO BLEEDING/DRAINAGE/SWELLING/WARMTH NOTED. ALL NEEDS ANTICIPATED AND MET. CARE PROVIDED AT ROUTINE INTERVALS AND NEEDED.
[2022-09-20 20:00] VITALS: BP 111/60
[2022-09-20] MEDS: BACLOFEN 10 MG TABLET PO SCH (20:44)
[2022-09-20] MEDS: MIRTAZAPINE 15 MG TABLET PO SCH (20:45)
[2022-09-20] MEDS: LATANOPROST OPHT DROP 2.5 ML BOTTLE EACHEYE SCH (20:45)
[2022-09-21 07:03] VITALS: BP 126/67
[2022-09-21 07:41] VITALS: BP 133/73
--- NOTE | 2022-09-21 07:54 | NUR ---
Sleeping, appears comfortable.
[2022-09-21] MEDS: PROTEIN SUPPLEMENT (PROSTAT) 30 ML LIQUID PO SCH (09:00)
[2022-09-21] MEDS: LIPASE/PROTEASE/AMYLASE 4200 UNITS CAPSULE.DR PO SCH ×3 (09:06→17:58)
[2022-09-21] MEDS: HYDROCHLOROTHIAZIDE 25 MG TABLET PO SCH (09:07)
[2022-09-21] MEDS: TIMOLOL MALEATE 0.5% OPHT DROP 5 ML BOTTLE EACHEYE SCH ×2 (09:07→17:58)
[2022-09-21] MEDS: ASPIRIN 325 MG TABLET PO SCH (09:07)
[2022-09-21] MEDS: POTASSIUM CHLORIDE 10 MEQ TAB.PRT.SR PO SCH (09:08)
[2022-09-21] MEDS: CHOLECALCIFEROL 1,000 UNIT TABLET PO SCH (09:08)
[2022-09-21] MEDS: PREGABALIN 100 MG CAPSULE PO SCH ×2 (09:08→17:58)
[2022-09-21] MEDS: LINZESS 145MG - PATIENT MAY USE OWN MED- MD OK PO SCH (09:08)
[2022-09-21] MEDS: PAROXETINE HCL 20 MG TABLET PO SCH (09:08)
[2022-09-21] MEDS: METOPROLOL SUCCINATE XL 25 MG TAB.SR.24H PO SCH (09:08)
[2022-09-21] MEDS: ENSURE ENLIVE (VAN) 240 ML LIQUID PO SCH ×3 (09:09→17:58)
[2022-09-21] MEDS: REMEDY ESSENTIAL ZINC PASTE 113 GM TOP SCH ×2 (09:09→20:28)
[2022-09-21] MEDS: HYDROCODONE/APAP 5-325MG TABLET PO PRN (09:11)
--- NOTE | 2022-09-21 15:58 | NUR ---
Back to room from PT exercises/activities
[2022-09-21 16:00] VITALS: BP 93/49
--- NOTE | 2022-09-21 17:00 | NUR ---
Skin and wound care done. Repositioned comfortably.
[2022-09-21] MEDS: LATANOPROST OPHT DROP 2.5 ML BOTTLE EACHEYE SCH (20:27)
[2022-09-21] MEDS: MIRTAZAPINE 15 MG TABLET PO SCH (20:27)
[2022-09-21] MEDS: BACLOFEN 10 MG TABLET PO SCH (20:29)
[2022-09-21 20:55] VITALS: BP 99/54
[2022-09-22 04:31] VITALS: BP 117/56
--- NOTE | 2022-09-22 07:15 | NUR ---
Received report from sheeba Crow nurse. Received pt in bed asleep, no s/s of distress noted, no respiratory distress noted.
[2022-09-22 08:00] VITALS: BP 119/65
[2022-09-22] MEDS: LIPASE/PROTEASE/AMYLASE 4200 UNITS CAPSULE.DR PO SCH ×2 (08:15→12:56)
[2022-09-22] MEDS: LINZESS 145MG - PATIENT MAY USE OWN MED- MD OK PO SCH (08:16)
[2022-09-22] MEDS: PAROXETINE HCL 20 MG TABLET PO SCH (08:30)
[2022-09-22] MEDS: POTASSIUM CHLORIDE 10 MEQ TAB.PRT.SR PO SCH (08:30)
[2022-09-22] MEDS: PREGABALIN 100 MG CAPSULE PO SCH (08:30)
[2022-09-22] MEDS: ASPIRIN 325 MG TABLET PO SCH (08:30)
[2022-09-22] MEDS: CHOLECALCIFEROL 1,000 UNIT TABLET PO SCH (08:30)
[2022-09-22] MEDS: TIMOLOL MALEATE 0.5% OPHT DROP 5 ML BOTTLE EACHEYE SCH (08:30)
[2022-09-22 08:36] VITALS: BP 119/65
[2022-09-22] MEDS: HYDROCHLOROTHIAZIDE 25 MG TABLET PO SCH (08:36)
[2022-09-22] MEDS: METOPROLOL SUCCINATE XL 25 MG TAB.SR.24H PO SCH (08:36)
[2022-09-22] MEDS: ENSURE ENLIVE (VAN) 240 ML LIQUID PO SCH ×2 (08:37→12:56)
[2022-09-22] MEDS: REMEDY ESSENTIAL ZINC PASTE 113 GM TOP SCH (08:38)
--- NOTE | 2022-09-22 10:15 | NUR ---
Spoke to Bar in Xray who will print a CD of pt's Left hip xrays and bring to pt's room prior pt going home.
[2022-09-22] MEDS: PROTEIN SUPPLEMENT (PROSTAT) 30 ML LIQUID PO SCH (11:07)
--- NOTE | 2022-09-22 14:36 | NUR ---
Pt discharged to home via WC with and CRISTIANO Call. Pt stable, no s/s of distress noted, no SOB at this time. Pt appeared comfortable and content.
== END 2022-09-22 14:36 | disposition home health service (06) | DRG 559 ==
PROVIDERS: ADMIT Physical Medicine & Rehabilitation; ATTEND Physical Medicine & Rehabilitation Pain Medicine
DX: Z47.1 Aftercare following joint replacement surgery (principal); J69.0 Pneumonitis due to inhalation of food and vomit; D68.59 Other primary thrombophilia; F03.93 Unspecified dementia, unspecified severity, with mood disturbance; M16.12 Unilateral primary osteoarthritis, left hip; Z96.642 Presence of left artificial hip joint; E78.5 Hyperlipidemia, unspecified; F32.9 Major depressive disorder, single episode, unspecified; I10 Essential (primary) hypertension; I25.10 Atherosclerotic heart disease of native coronary artery without angina pectoris; B02.9 Zoster without complications; D50.9 Iron deficiency anemia, unspecified; D69.6 Thrombocytopenia, unspecified; F17.200 Nicotine dependence, unspecified, uncomplicated; M32.9 Systemic lupus erythematosus, unspecified; E83.42 Hypomagnesemia; E87.6 Hypokalemia; Z87.11 Personal history of peptic ulcer disease
CPT/HCPCS: 36415; 71045; 73502; 83550; 83605; 83735; 84100; 84443; 84484; 85025; 86140; 93005; 93307; 97535-GO-CO; A4663; A6213; J1940; J2543; J2916; J3370; J3475; J7040; J7050